=== PATIENT | male | born 1945 | race Caucasian/White ===

== ENCOUNTER → 2016-05-26 | Outpatient (CLI) | payer OTHER ==
--- NOTE | 2016-05-26 14:38 | DIAGNOSTIC IMAGING REPORT ---
ABDOMEN ULTRASOUND FOR HERNIA CLINICAL HISTORY: R/O Hernia, groin AREA PAIN. Right groin pain. COMPARISON STUDY: None. FINDINGS: There is a small fat-containing reducible right inguinal hernia. This measures 1.5 cm. No masses or fluid collection within the right inguinal region. IMPRESSION: Small fat-containing reducible right inguinal hernia. Electronically signed by: Joey Morris M.D. 05/26/2016 2:36 PM Dictated Date/Time: 05/26/2016 2:35 PM
== END | disposition home or self-care (01) ==
LOC: C.ULTR 14:11
PROVIDERS: ATTEND Family Medicine
DX: K40.90 Unilateral inguinal hernia, without obstruction or gangrene, not specified as recurrent (principal)

== ENCOUNTER → 2017-02-25 | Outpatient (CLI) | payer OTHER ==
[~2017-02-25] MED LIST: ATOR-22 PO; CHOL100027 PO; GLC/500 PO; LOSA1TAB38 PO
[2017-02-25 18:43] LABS: CKMB/CK RATIO 1.6 (0-3.0)
== END | disposition home or self-care (01) ==
LOC: C.LAB 17:39
PROVIDERS: ATTEND Student in an Organized Health Care Education/Training Program
DX: M79.602 Pain in left arm (principal)

== ENCOUNTER → 2017-03-18 | Outpatient (CLI) | payer OTHER | END | disposition home or self-care (01) | LOC: C.MAMM 08:39 | PROVIDERS: ATTEND Family Medicine | DX: M81.0 Age-related osteoporosis without current pathological fracture (principal); M85.88 Other specified disorders of bone density and structure, other site; M85.852 Other specified disorders of bone density and structure, left thigh ==

== ENCOUNTER → 2017-03-30 | Outpatient (CLI) | payer OTHER ==
--- NOTE | 2017-03-30 13:06 | DIAGNOSTIC IMAGING REPORT ---
TWO VIEW CHEST CLINICAL HISTORY: Cough. FINDINGS: PA and lateral chest radiographs are compared to study dated 02/24/2017. The cardiomediastinal silhouette is unremarkable. There is mild chronic elevation of right hemidiaphragm. No airspace consolidation or pleural effusion is seen. Scattered calcified granulomas are similar to previous. There is no pneumothorax. There are healed right-sided rib fractures. Cholecystectomy clips are noted in the right upper quadrant. IMPRESSION: No active disease in the chest. Electronically signed by: Leo Blandon M.D. 03/30/2017 1:04 PM Dictated Date/Time: 03/30/2017 1:04 PM
== END | disposition home or self-care (01) ==
LOC: C.RAD1850 12:49
PROVIDERS: ATTEND Family Medicine
DX: R05 Cough (principal)

== ENCOUNTER → 2017-06-11 | Outpatient (CLI) | payer OTHER ==
--- NOTE | 2017-06-11 11:25 | DIAGNOSTIC IMAGING REPORT ---
LEFT SHOULDER 3 VIEWS CLINICAL HISTORY: Left shoulder pain. FINDINGS: 3 views of left shoulder are obtained. No prior studies are available for comparison at the time of dictation. The skeletal structures are osteopenic. No fracture or dislocation is seen. The glenohumeral articulation is maintained. Mild productive degenerative changes noted at the acromioclavicular joint. Calcific tendinopathy is observed. The visualized left lung parenchyma appears clear noting tiny calcified granulomas. IMPRESSION: 1. Osteopenia and degenerative change as above. 2. No left shoulder fracture or dislocation is seen. 3. Calcific tendinopathy is observed. Electronically signed by: Leo Blandon M.D. 06/11/2017 11:24 AM Dictated Date/Time: 06/11/2017 11:23 AM
== END | disposition home or self-care (01) ==
LOC: C.RDSM 17:56
PROVIDERS: ATTEND Family Medicine
DX: M85.812 Other specified disorders of bone density and structure, left shoulder (principal); M75.32 Calcific tendinitis of left shoulder